=== PATIENT | male | born 2000 | race Two or more races ===

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

== ENCOUNTER 2024-08-07 14:15 | Emergency (ER) | payer MEDICAID, OTHER ==
[~2024-08-07] VITALS: Ht 165.1 cm; Wt 72.6 kg
[2024-08-07 15:25] VITALS: BP 126/80; TEMP 98.6; O2SAT 99
== END 2024-08-07 15:25 | disposition home or self-care (01) ==
LOC: ER 14:17
DX: F41.9 Anxiety disorder, unspecified (principal); R07.9 Chest pain, unspecified; G40.909 Epilepsy, unspecified, not intractable, without status epilepticus; Z86.59 Personal history of other mental and behavioral disorders

== ENCOUNTER 2024-08-08 14:33 | Emergency (ER) | payer OTHER ==
[~2024-08-08] VITALS: Ht 170.2 cm; Wt 68.0 kg
[2024-08-08 14:47] VITALS: TEMP 98
[2024-08-08] MEDS ORDERED: HALOPERIDOL LACTATE INJ 5 MG/ML VIAL ONE (16:11)
[2024-08-08] MEDS ORDERED: LORAZEPAM INJ 2 MG/ML VIAL ONE (16:12)
[2024-08-08] MEDS: LORAZEPAM INJ 2 MG/ML VIAL IM ONE (16:20)
[2024-08-08] MEDS: HALOPERIDOL LACTATE INJ 5 MG/ML VIAL IM ONE (16:24)
[2024-08-08 17:53] VITALS: BP 135/66; O2SAT 98
== END 2024-08-08 17:53 ==
LOC: ER 14:43
DX: S80.12XA Contusion of left lower leg, initial encounter (principal); S40.022A Contusion of left upper arm, initial encounter; S80.11XA Contusion of right lower leg, initial encounter; M25.512 Pain in left shoulder; M25.522 Pain in left elbow; R45.1 Restlessness and agitation; G40.909 Epilepsy, unspecified, not intractable, without status epilepticus; Z60.2 Problems related to living alone; W18.39XA Other fall on same level, initial encounter; Y93.89 Activity, other specified; Y92.89 Other specified places as the place of occurrence of the external cause; Y99.8 Other external cause status
CPT/HCPCS: 99284; 96372 ×2; 73070; 73560 ×2; 73030; J2060; J1630